=== PATIENT | female | born 2000 | race Caucasian/White ===

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

== ENCOUNTER 2018-01-16 20:13 | Emergency (ER) | payer BC ==
--- NOTE | 2018-01-16 21:19 | RADIOLOGY REPORT (SQ) ---
EXAM DESCRIPTION: CHEST SINGLE VIEW COMPLETED DATE/TIME: 01/16/2018 8:52 pm REASON FOR STUDY: cp, sob COMPARISON: None. EXAM PARAMETERS: NUMBER OF VIEWS: One view. TECHNIQUE: Single frontal radiographic view of the chest acquired. RADIATION DOSE: NA LIMITATIONS: None. FINDINGS: LUNGS AND PLEURA: No opacities, masses or pneumothorax. No pleural effusion. MEDIASTINUM AND HILAR STRUCTURES: No masses. Contour normal. HEART AND VASCULAR STRUCTURES: Heart normal in size. Normal vasculature. BONES: No acute findings. HARDWARE: None in the chest. OTHER: No other significant finding. IMPRESSION: NO ACUTE RADIOGRAPHIC FINDING IN THE CHEST. TECHNICAL DOCUMENTATION: JOB ID: [id number] [place]-72 2010 [employer]- All Rights Reserved Reading location - IP/workstation name: [email or web address]
--- NOTE | 2018-01-16 21:32 | ER Document Report ---
ED General - General Chief Complaint: Chest Pain Stated Complaint: CHEST PAIN,SHORTNESS OF BREATH Time Seen by Provider: 01/16/18 20:36 Notes: Patient is a 17-year-old female with a past medical history of Chung disease, anxiety, who presents with several months of intermittent episodes of lightheadedness, palpitations and feeling that she cannot see or hear. These episodes occur spontaneously and do spontaneously resolve. She used to be on fludrocortisone for her pots disease but has been unable to take this due to concern of a possible gastric ulcer or gastritis. She has not seen her primary doctor regarding today's concerns. She has had similar symptoms in the past, had a Holter monitor completed but did not appropriately follow through with the period of monitoring. Mother states that the patient looked much worse prior to arrival apparently was pale, somewhat diaphoretic, appeared near syncopal but that now the patient appears normal. The patient denies any current symptoms, states this feels exactly similar to the events that she has had in the past. She states that during the episode she did have a stabbing, mild discomfort in her chest that also has since resolved. TRAVEL OUTSIDE OF THE [place] IN LAST 30 DAYS: No - Related Data Allergies/Adverse Reactions: No Known Allergies Allergy (Verified 07/22/16 06:40) Past Medical History - General Information source: Patient, Parent - Social History Smoking Status: Never Smoker Frequency of alcohol use: None Drug Abuse: None Lives with: Parents Family History: Reviewed & Not Pertinent Renal/ Medical History: Denies: Hx Peritoneal Dialysis - Immunizations Immunizations up to date: Yes Hx Diphtheria, Pertussis, Tetanus Vaccination: Yes Review of Systems - Review of Systems Notes: Constitutional: Negative for fever. HENT: Negative for sore throat. Eyes: Negative for visual changes. Cardiovascular: Positive for chest pain and lightheadedness Respiratory: Negative for shortness of breath. Gastrointestinal: Negative for abdominal pain, vomiting or diarrhea. Genitourinary: Negative for dysuria. Musculoskeletal: Negative for back pain. Skin: Negative for rash. Neurological: Negative for headaches, weakness or numbness. 10 point ROS negative except as marked above and in HPI. Physical Exam - Vital signs Interpretation: Normal Notes: PHYSICAL EXAMINATION: GENERAL: Well-appearing, well-nourished and in no acute distress. HEAD: Atraumatic, normocephalic. EYES: Pupils equal round and reactive to light, extraocular movements intact, sclera anicteric, conjunctiva are normal. ENT: nares patent, oropharynx clear without exudates. Moist mucous membranes. NECK: Normal range of motion, supple without lymphadenopathy LUNGS: Breath sounds clear to auscultation bilaterally and equal. No wheezes rales or rhonchi. HEART: Regular rate and rhythm without murmurs ABDOMEN: Soft, nontender, normoactive bowel sounds. No guarding, no rebound. No masses appreciated. EXTREMITIES: Normal range of motion, no pitting or edema. No cyanosis. NEUROLOGICAL: No focal neurological deficits. Moves all extremities spontaneously and on command. PSYCH: Normal mood, normal affect. SKIN: Warm, Dry, normal turgor, no rashes or lesions noted. Course - Re-evaluation Re-evalutation: 01/16/18 21:31 Patient presents with palpitations but is in no acute distress. Vitals within normal limits at time of arrival. EKG unremarkable with a normal sinus rhythm. Laboratories are unremarkable. Patient has a recurrent history of episodes of palpitations with lightheadedness, shortness of breath, chest pain near syncope and states that this is similar to those previous episodes although mother at bedside notes that this was more intense than usual. Patient has a diagnosis of Chung disease but has been off her fludrocortisone for over 2 years due to concerns of gastric irritation. At this time based on exam and history do not suspect a new onset arrhythmia, ACS, acute pulmonary embolus, aortic dissection. Patient encouraged to follow-up with their primary care physician as well as cardiology and a referral has been provided. At this time will discharge with return precautions and follow-up recommendations. Verbal discharge instructions given a the bedside and opportunity for questions given. Medication warnings reviewed. Patient is in agreement with this plan and has verbalized understanding of return precautions and the need for primary care follow-up in the next 24-72 hours. - Laboratory Result Diagrams: 01/16/18 21:14 01/16/18 21:14 Laboratory results interpreted by me: 01/16/18 01/16/18 21:14 21:14 Hgb 15.7 H Calcium 10.8 H - Diagnostic Test Radiology reviewed: Image reviewed, Reports reviewed Radiology results interpreted by me: 01/16/18 22:31 Chest x-ray: No acute infiltrate or pneumothorax - EKG Interpretation by Me Additional EKG results interpreted by me: 01/16/18 22:31 Sinus rhythm. Rate 81. No ST elevations or depressions. QTC is 386. Discharge - Discharge Clinical Impression: Near syncope, POTS (postural orthostatic tachycardia syndrome), Panic reaction Condition: Good Disposition: HOME, SELF-CARE Additional Instructions: Please follow-up with your primary care doctor or a lockstitch tunnel elastic operator regarding your palpitations and recurrent periods of lightheadedness. They will likely want to repeat a Holter monitor to evaluate the rhythm that we have seen here in the emergency department today. Your labs and chest x-ray as well as EKG are all normal today. Please begin taking famotidine 40 mg twice daily as well as the Carafate that has been prescribed prior to meals. The goal is to reduce your stomach irritation so that you can restart the fludrocortisone for your pots syndrome. Prescriptions: Famotidine 40 mg PO BID #60 tablet Sucralfate [Carafate 1 gm Tablet] 1 gm PO ACHS #120 tablet Referrals: ROSS BERNAL NP [Primary Care Provider] - Follow up as needed JOHNNY RAYMOND MD [ACTIVE STAFF] - Follow up tomorrow
[2018-01-16 21:42] LABS: ABSOLUTE LYMPHOCYTES (AUTO) 2.9 10^3/uL (0.5-4.7); ABSOLUTE MONOCYTES (AUTO) 0.5 10^3/uL (0.1-1.4); ABSOLUTE NEUT (AUTO) 3.4 10^3/uL (1.7-8.2); BASOPHILS % (AUTO) 0.5 % (0-2); EOSINOPHILS % (AUTO) 0.6 % (0-6); HEMATOCRIT 45.2 % (36.0-47.0); HEMOGLOBIN 15.7 g/dL (12.0-15.5); MEAN CORPUSCULAR HEMOGLOBIN 31.2 pg (27.0-33.4); MEAN CORPUSCULAR HGB CONC 34.8 g/dL (32.0-36.0); MEAN CORPUSCULAR VOLUME 90 fl (80-97); MONOCYTES % (AUTO) 7.4 % (3-13); PLATELET COUNT 336 10^3/uL (150-450); RED BLOOD COUNT 5.04 10^6/uL (3.72-5.28); RED CELL DISTRIBUTION WIDTH 12.9 % (11.5-14.0); SEGMENTED NEUTROPHILS % (AUTO) 49.5 % (42-78); TOTAL CELLS COUNTED % (AUTO) 100 %; WHITE BLOOD COUNT 6.9 10^3/uL (4.0-10.5)
[2018-01-16 21:46] LABS: ANION GAP 15 (5-19); BLOOD UREA NITROGEN 11 mg/dL (7-20); CALCIUM 10.8 mg/dL (8.4-10.2); CARBON DIOXIDE 23 mmol/L (22-30); CHLORIDE 105 mmol/L (98-107); GLUCOSE 82 mg/dL (75-110); POTASSIUM 4.8 mmol/L (3.6-5.0); SODIUM 143.3 mmol/L (137-145)
[2018-01-16 22:03] LABS: FREE T4 (FREE THYROXINE) 1.1 ng/dL (0.78-2.19)
[2018-01-16 22:17] LABS: THYROID STIMULATING HORMONE 1.33 uIU/mL (0.47-4.68)
[2018-01-17 06:51] VITALS: BP 115/82
--- NOTE | 2018-01-17 07:54 | EKG REPORT ---
SEVERITY:- ABNORMAL ECG - NORMAL SINUS RHYTHM : Confirmed by: Robel Llanos MD 17-Jan-2018 07:52:53
== END 2018-01-16 22:58 | disposition home or self-care (01) ==
LOC: ER 20:13
DX: I49.8 Other specified cardiac arrhythmias (principal); F41.0 Panic disorder [episodic paroxysmal anxiety]; R55 Syncope and collapse; R00.2 Palpitations; R07.9 Chest pain, unspecified; R06.02 Shortness of breath
CPT/HCPCS: 36415; 71045; 80048; 84439; 84443; 84703; 85025; 93005; 93010; 99285